=== PATIENT | male | born 1995 | race Caucasian/White ===

== ENCOUNTER 2020-12-02 10:51 | Emergency (ER) | payer OTHER, SELFPAY ==
[2020-12-02 11:05] VITALS: BP 141/87; PULSE 75; RESP 16; TEMP 36.8; O2SAT 98; BMI 25.1
--- NOTE | 2020-12-02 11:34 | ED_ITS ---
HPI - General Adult General Chief complaint: General Medical Stated complaint: COUGH RUNNY NOSE SORE THROAT Time Seen by Provider: 12/02/20 11:32 Source: patient Limitations: no limitations History of Present Illness HPI narrative: This is a 25-year-old male who is here for URI symptoms that began today, including a sore throat worse on the right side, and a mild cough. and daughter have also been sick recently with similar symptoms. He denies any fever, shortness of breath, nausea vomiting or diarrhea. Denies any significant past medical history. He has not been immunized for COVID Related Data Allergies Allergy/AdvReac Type Severity Reaction Status Date / Time No Known Allergies Allergy Verified 12/02/20 11:07 [No Known Allergies*] Review of Systems Review of Systems: Yes all other systems are reviewed and are negative Constitutional: Constitutional: Reports as per HPI and Denies fever(s) Eyes: Eyes: Reports as per HPI and Reports no additional eye complaints ENT: Reports system reviewed and no additional complaints, except as documented, Reports as per HPI, Denies nasal congestion, Reports nasal discharge and Reports sore throat Cardiovascular: Cardiovascular: Reports as per HPI, Denies chest pain and Denies dyspnea Respiratory: Respiratory: Reports as per HPI, Reports cough (Mild) and Denies dyspnea Gastrointestinal: Gastrointestinal: Reports as per HPI, Denies abdominal pain, Denies diarrhea and Denies vomiting Genitourinary: Genitourinary: Reports as per HPI, Denies hematuria, Denies dysuria and Denies urinary frequency Musculoskeletal: Musculoskeletal: Reports no additional musculoskeletal complaints and Denies numbness Integumentary/Breasts: Skin/Breast: Reports as per HPI and Denies rash Neurologic: Reports as per HPI, Denies focal weakness, Denies numbness and Denies Sensory deficit (Neuro) Psychiatric: Psychiatric: Reports no additional psychiatric complaints and Reports as per HPI Endocrine: Endocrine: Reports no additional endocrine complaints and Reports as per HPI Hematologic/Lymphatic: Hematologic/Lymphatic: Reports no additional hematologic/lymphatic complaints, Reports as per HPI and Reports other (No peripheral edema) [facility] Past Medical History Medical History (Updated 12/02/20 @ 12:14 by Andrey Aguirre MD) Patient denies significant medical history Social History Social History Advance Directives: No Advance Directives Information Provided: No Physical Exam Vital Signs: Vital Signs: Last Vital Signs Temp 98.3 F 12/02/20 11:05 Pulse 75 12/02/20 11:05 Resp 16 12/02/20 11:05 BP 141/87 H 12/02/20 11:05 Pulse Ox 98 12/02/20 11:05 Body Mass Index 25.1 Const: General: cooperative, no acute distress and alert Orientation/consciousness: patient oriented x3 HENMT: Head: Yes normal to inspection Eyes: General: appearance normal, both eyes and all related structures Eyelids: Yes eyelids normal Conjunctivae: conjunctivae normal Pupils: Equal, round and reactive pupils present Neck: Neck: Yes normal visual inspection and Yes supple Chest: Chest palpation & inspection: normal inspection of the chest Resp: Effort & Inspection: normal respiratory effort Auscultation: clear to auscultation bilaterally Cardio: Rate: regular rate Rhythm: regular rhythm Heart sounds: S1 normal heart sound present, S2 normal heart sound present, no gallops, no murmurs and no rubs GI: Palpation (GI): Soft to palpation, nontender and Other GI palpation findings present (Non-distended) Auscultation: normal bowel sounds Skin: General skin exam: no rashes or lesions noted Neuro: General: patient oriented x3, no focal motor deficits and CN's II-XI intact bilaterally Cranial nerves: Yes Equal, round and reactive pupils present Cognition (Neuro): normal cognition Motor exam (neuro): 5/5 motor strength present throughout Sensory Exam: No Sensory deficit (Neuro) Extrem: General: Yes normal to inspection and Yes no pedal edema Psych: Appearance: grossly normal Affect: normal affect Medical Decision Making MDM Narrative Medical decision making narrative: Patient with URI symptoms starting today. Patient's and daughter have had similar symptoms in the last few days. COVID test negative. Lab Data Labs: Lab Results 12/02/20 Range/Units 11:38 COVID-19 (JENNIFER) Negative (Negative) COVID-19 Clin Com See Note Discharge Plan Discharge Clinical Impression: Acute upper respiratory infection Patient Disposition: Home, Self-Care Instructions: Upper Respiratory Infection (ED) Additional Instructions: Drink plenty of fluids. Use Tylenol or ibuprofen for any aches or low-grade fever. Return for any new or worsened symptoms such as increased cough or shortness of breath. Stand Alone Forms: Work/School Release Interventions: ED Discharge Assessment Last Done: 12/02/20 12:19 Discharge Date/Time: 12/02/20 12:20
[2020-12-02 12:13] LABS: COVID-19 Test Negative (Negative)
== END 2020-12-02 12:20 | disposition home or self-care (01) ==
PROVIDERS: Emergency Provider Emergency Medicine; PCP Internal Medicine
DX: J06.9 Acute upper respiratory infection, unspecified (principal); Z20.822 Contact with and (suspected) exposure to COVID-19
CPT/HCPCS: 36415; 87635; 99283

== ENCOUNTER 2021-04-10 14:04 | Emergency (ER) | payer OTHER, SELFPAY ==
--- NOTE | ~2021-04-10 | CT_ITS ---
EXAMINATION: CT HEAD WITHOUT CONTRAST CLINICAL INFORMATION: Trauma COMPARISON: Head CT 10/13/2012 TECHNIQUE: Contiguous axial imaging was performed from the skull base to vertex without intravenous administration of contrast. This CT examination was performed using dose optimization techniques as appropriate, variously including the following: *Automated exposure control *Adjustment of mA and/or kV according to patient size (this includes techniques or standardized protocols for targeted exams where dose is matched to indication/reason for exam; i.e. extremities or head) *Use of iterative reconstruction technique DLP: 605 mGy-cm FINDINGS: There is no evidence of acute intracranial hemorrhage or territorial infarction. No abnormal mass effect or midline shift is seen. Fuentes to white matter differentiation is well preserved. No extra-axial fluid collections are identified. The ventricles are normal in size. There is no abnormal attenuation within the brain parenchyma. The osseous structures and soft tissues are normal. The mastoid air cells and visualized portions of the paranasal sinuses are well aerated. CT/CT head/brain wo con IMPRESSION: No acute intracranial pathology.
[2021-04-10 14:16] VITALS: BP 138/68; PULSE 68; RESP 18; TEMP 36.2; O2SAT 98; BMI 26.4
--- NOTE | 2021-04-10 16:21 | ED_ITS ---
HPI - Head Injury General Chief complaint: Head Injury Stated complaint: head injury - work related Time Seen by Provider: 04/10/21 16:13 Source: patient Mode of arrival: ambulatory Limitations: no limitations History of Present Illness HPI Narrative: this is 26 yo man presented to the ED c/o SIMS,he states that was at work and a weight fell in his head ,he is c/o sims,no nausea,no vomiting Complaint: head injury Onset (ago): hour(s) (4) Mechanism of Injury: work related injury Place: work Loss of Consciousness: no Location of injury: frontal Severity: moderate Radiation: none Related Data Allergies Allergy/AdvReac Type Severity Reaction Status Date / Time No Known Allergies Allergy Verified 12/02/20 11:07 [No Known Allergies*] Review of Systems Constitutional: Constitutional: Reports no additional constitutional complaints Eyes: Eyes: Denies loss of vision ENT: Denies vertigo and Denies dizziness Neurologic: Denies confusion, Denies vertigo, Denies dizziness, Denies lack of coordination, Denies focal weakness, Denies loss of vision and Denies memory loss Psychiatric: Psychiatric: Reports no additional psychiatric complaints, Denies confusion and Denies memory loss PMFSH Past Medical History Medical History Low back pain Patient denies significant medical history Recurrent major depression Surgical History H/O right knee surgery Social History Social History Advance Directives: No Advance Directives Information Provided: Yes Physical Exam Vital Signs: Vital Signs: Last Vital Signs Temp 97.2 F 04/10/21 14:16 Pulse 68 04/10/21 14:16 Resp 18 04/10/21 14:16 BP 138/68 04/10/21 14:16 Pulse Ox 98 04/10/21 14:16 Body Mass Index 26.4 Const: General: cooperative, healthy appearing and comfortable; No confusion Orientation/consciousness: oriented to person, oriented to place, oriented to time, patient oriented x3 and No confusion HENMT: Head: Yes normal to inspection, Yes No palpable skull fracture present and Yes normocephalic Ears: hearing grossly normal bilaterally Face and sinus: Yes normal facial exam Mouth: Normal oral and palatal mucosa present Throat: Yes posterior oropharynx normal Neck: Neck: Yes normal visual inspection and Yes full ROM Chest: Chest palpation & inspection: normal inspection of the chest Resp: Effort & Inspection: normal respiratory effort Auscultation: clear to auscultation bilaterally Cardio: Palpation: normal PMI Rate: regular rate Rhythm: regular rhythm GI: Inspection: Yes normal to inspection Palpation (GI): Soft to palpation, not firm, nontender, no guarding and not rigid Auscultation: normal bowel sounds Skin: General skin exam: no rashes or lesions noted, elasticity normal and turgor normal Lesions: no lesions Rashes: no rashes Neuro: General: oriented to person, oriented to place, oriented to time, patient oriented x3 and No confusion Cranial nerves: Yes CN's II-XII intact bilaterally Cognition (Neuro): normal cognition Gait exam (Neuro): Normal gait present Course Reevaluation(s) Reevaluation #1: remain hemodinamically and neurologically stable,head ct negative will d/c home MDM - Head Injury Imaging Data CT scan - head: Radiologist's impression: * on of contrast. This CT examination was performed using dose optimization techniques as appropriate, variously including the following: *Automated exposure control *Adjustment of mA and/or kV according to patient size (this includes techniques or standardized protocols for targeted exams where dose is matched to indication/reason for exam; i.e. extremities or head) *Use of iterative reconstruction technique DLP: 605 mGy-cm FINDINGS: There is no evidence of acute intracranial hemorrhage or territorial infarction. No abnormal mass effect or midline shift is seen. Fuentes to white matter differentiation is well preserved. No extra-axial fluid collections are identified. The ventricles are normal in size. There is no abnormal attenuation within the brain parenchyma. The osseous structures and soft tissues are normal. The mastoid air cells and visualized portions of the paranasal sinuses are well aerated. ? CT/CT head/brain wo con IMPRESSION: No acute intracranial pathology. Dictated By:MONE MASTigned By:<El Discharge Plan Discharge Clinical Impression: Closed head injury Patient Disposition: Home, Self-Care Instructions: Head Injury (ED) Referrals: Artie Villa MD [Primary Care Provider] - 2 days Stand Alone Forms: Work/School Release
== END 2021-04-10 18:17 | disposition home or self-care (01) ==
PROVIDERS: Emergency Provider Emergency Medicine; PCP Internal Medicine
DX: S09.90XA Unspecified injury of head, initial encounter (principal); G44.309 Post-traumatic headache, unspecified, not intractable; Y29.XXXA Contact with blunt object, undetermined intent, initial encounter; Y93.9 Activity, unspecified; Y92.9 Unspecified place or not applicable; Y99.0 Civilian activity done for income or pay
CPT/HCPCS: 70450; 99283; 99284

== ENCOUNTER 2021-05-27 09:42 | Outpatient (REF) | payer OTHER, SELFPAY ==
[2021-05-27 10:52] LABS: COVID-19 Test Positive (Negative)
== END 2021-05-27 09:43 | disposition home or self-care (01) ==
LOC: HO.LAB 09:42
PROVIDERS: Visit Provider Internal Medicine
DX: Z20.822 Contact with and (suspected) exposure to COVID-19 (principal)
CPT/HCPCS: 36415; 87635; C9803

== ENCOUNTER 2021-06-05 10:07 | Outpatient (REF) | payer OTHER, SELFPAY ==
[2021-06-05 13:31] LABS: Binax Internal Control QC Valid; Binax Now Covid-19 Ag Negative (Negative)
== END 2021-06-05 10:08 | disposition home or self-care (01) ==
LOC: HO.LAB 10:07
PROVIDERS: Visit Provider Internal Medicine
DX: Z20.822 Contact with and (suspected) exposure to COVID-19 (principal)
CPT/HCPCS: C9803

== ENCOUNTER 2021-07-09 18:03 | Emergency (ER) | payer OTHER, SELFPAY ==
--- NOTE | ~2021-07-09 | CT_ITS ---
EXAMINATION: CT ORBIT WITH CONTRAST CLINICAL INFORMATION: Left eye trauma. Discharge. COMPARISON: CT scan of the head 04/10/2021. TECHNIQUE: [employer] images were obtained. CT imaging of the orbits was performed after the intravenous administration of 85 mL Omnipaque 350. Data was reformatted into multiplanar images at the acquisition workstation. This CT examination was performed using dose optimization techniques as appropriate, variously including the following: *Automated exposure control *Adjustment of mA and/or kV according to patient size (this includes techniques or standardized protocols for targeted exams where dose is matched to indication/reason for exam; i.e. extremities or head) *Use of iterative reconstruction technique DLP: 152 mGy-cm FINDINGS: There is asymmetric conjunctival hyperenhancement on the left. No evidence of a retained radiodense foreign body within the subcutaneous tissues. Globes and extraocular muscles are symmetric. No abnormal retrobulbar mass or inflammation. Lamina papyracea and orbital floors are intact. Orbital apices are unremarkable. There is mild paranasal sinus mucosal thickening within the ethmoid air cells and maxillary sinuses. All of the major paranasal sinus drainage pathways are patent. The nasal septum deviates to the left and there is a small rightward projecting nasal septal spur that contacts the medial surface of the right inferior nasal turbinate. Limited visualization of the intracranial anatomy reveals no abnormal finding. Specifically there is no midline shift or hydrocephalus. CT/CT orbit BI w con IMPRESSION: Asymmetric conjunctival hyperenhancement on left side may represent a manifestation of conjunctivitis. Otherwise unremarkable examination. No abnormal retrobulbar mass or inflammation. Globes are intact. No evidence of a retained radiodense foreign body.
[2021-07-09 18:07] VITALS: BP 136/88; PULSE 80; RESP 18; TEMP 36.7; O2SAT 99; BMI 27.1
[2021-07-09 18:49] VITALS: BP 130/81; PULSE 79; RESP 18; TEMP 36.6; O2SAT 97
[2021-07-09 20:08] LABS: MANUAL DIFF FLAG NO
[2021-07-09 20:09] LABS: Basophils Absolute Auto 0.1 X10*3/uL (0.0-0.2); Basophils Percent Auto 0.5 % (0-2); Eosinophils Absolute Auto 0.2 X10*3/uL (0.0-0.4); Eosinophils Percent Auto 1.3 % (0-4); Hemoglobin 15.5 g/dl (14.0-18.0); Imm Gran Abs Auto 0.04 X10*3/uL (0.00-0.03); Imm Gran Pct Auto 0.3 % (0.0-0.4); Lymphocytes Absolute Auto 2.3 X10*3/uL (1.2-4.9); Lymphocytes Percent Auto 18.9 % (20-40); Mean Corpuscular HGB Conc 33.7 g/dl (31.0-36.0); Mean Corpuscular Hemoglobin 30.5 pg (27.0-33.0); Mean Corpuscular Volume 90.4 fL (80.0-98.0); Mean Platelet Volume 10.9 fL (9.4-12.4); Monocytes Absolute Auto 0.7 X10*3/uL (0.1-1.2); Monocytes Percent Auto 5.6 % (2-11); Neutrophils Absolute Auto 8.9 x10*3/uL (2.0-8.3); Neutrophils Percent Auto 73.4 % (45-73); Platelet Count 253 X10*3/uL (160-400); Red Blood Count 5.09 X10*6/uL (4.60-5.80); Red Cell Distribution Width 12.4 % (11.0-16.0); White Blood Count 12.2 X10*3/uL (4.8-10.8)
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
[2021-07-09] MEDS: iohexoL 350 MG/ML 100 ML INFUS..BTL IV (20:12)
[2021-07-09] MEDS: Tetracaine HCl/PF 0.5% Oph Sol 4 ML DROPS 3 DROP EYE-BOTH (20:25)
[2021-07-09] MEDS: Fluorescein Sodium STRIP 1 STRIP EYE-LEFT (20:25)
[2021-07-09] MEDS: oxyCODONE HCl Immed Release 5 MG TABLET PO (20:25)
[2021-07-09] MEDS: Fluorescein Sodium STRIP 1 STRIP EYE-RIGHT (20:26)
[2021-07-09 20:27] VITALS: BP 130/77; PULSE 68; RESP 18; TEMP 36.7; O2SAT 98
[2021-07-09 20:36] LABS: Alanine Aminotransferase 29 U/L (0-40); Albumin Level 4.7 g/dL (3.5-5.0); Alkaline Phosphatase 106 U/L (39-117); Anion Gap 14 (12-20); Aspartate Amino Transferase 18 U/L (5-37); Bilirubin Total 0.5 mg/dL (0.0-1.0); Blood Urea Nitrogen 14 mg/dL (9-16); Calcium 9.6 mg/dL (8.4-10.2); Carbon Dioxide 23 mmol/L (22-29); Chloride 112 mmol/L (96-108); Creatinine Clr Calc Pharmacy 139.4; Estimated Glomerular Filt Rate > 60; Glucose Random 85 mg/dL (60-115); Potassium 3.6 mmol/L (3.3-5.1); Sodium 145 mmol/L (135-145); Total Protein 7.5 g/dL (6.5-8.0)
== END 2021-07-09 22:30 | disposition home or self-care (01) ==
PROVIDERS: Physician Assistant; Emergency Provider Internal Medicine; PCP Internal Medicine
DX: S05.02XA Injury of conjunctiva and corneal abrasion without foreign body, left eye, initial encounter (principal); W50.4XXA Accidental scratch by another person, initial encounter; Y93.9 Activity, unspecified; Y92.9 Unspecified place or not applicable; Y99.9 Unspecified external cause status
CPT/HCPCS: 36415; 70481; 80053; 85025; 99284; Q9967